=== PATIENT | female | born 1950 | race Two or more races ===

== ENCOUNTER 2018-09-23 12:16 | Emergency (ER) ==
[~2018-09-23] VITALS: Ht 165.1 cm; Wt 84.8 kg
[~2018-09-23 12:16] MED LIST: ATEN25TA PO; METF-440 PO; PANT40TA2 PO
--- NOTE | 2018-09-23 12:38 | NUR ---
PT BBSELF FOR CP X 3DAYS NOW; PT AAOX4, PT AMBULATORY, PT TO BED 7, NAD NOTED, VSS, PENDING MD BERNAL
[2018-09-23 12:43] LABS: BASOPHILS # (AUTO) 0.1 /CMM (0.0-0.2); BASOPHILS % (AUTO) 0.7 % (0.0-2.0); EOSINOPHILS % (AUTO) 1.9 % (0.0-6.0); HEMATOCRIT 40 % (33-45); HEMOGLOBIN 13.3 g/dL (11.5-14.8); LYMPHOCYTES # (AUTO) 2.8 /CMM (0.8-4.8); LYMPHOCYTES % (AUTO) 38.3 % (20.0-44.0); MEAN CORPUSCULAR HGB CONC 34 g/dl (31.0-36.0); MEAN CORPUSCULAR VOLUME 89 fL (82-100); MONOCYTES # (AUTO) 0.4 /CMM (0.1-1.30); NEUTROPHILS # (AUTO) 3.9 /CMM (1.8-8.9); NEUTROPHILS % (AUTO) 53.1 % (43.0-81.0); PLATELET COUNT (AUTO) 341 /CMM (150-450); RED BLOOD CELL COUNT(AUTO) 4.45 MIL/uL (4.0-5.2); WHITE BLOOD COUNT (AUTO) 7.4 K/uL (4.3-11.0)
[2018-09-23 12:51] LABS: CARBON DIOXIDE 30 mmol/L (21-32); CHLORIDE 103 mmol/L (98-107); CREATININE 0.8 mg/dL (0.6-1.3); GLUCOSE 175 mg/dL (74-106); POTASSIUM 4.6 mmol/L (3.5-5.1); SODIUM SERUM 141 mmol/L (136-145); UREA NITROGEN, BLOOD 15 mg/dL (7-18)
[2018-09-23 12:57] LABS: ALANINE AMINOTRANSFERASE 23 U/L (12-78); ALBUMIN 3.8 g/dL (3.4-5.0); ALKALINE PHOSPHATASE 91 U/L (46-116); ASPARTATE AMINOTRANSFERASE 14 U/L (15-37); BILIRUBIN,DIRECT 0.1 mg/dL (0.0-0.2); BILIRUBIN,TOTAL 0.4 mg/dL (0.2-1.0); TOTAL PROTEIN, SERUM 8.2 g/dL (6.4-8.2)
--- NOTE | 2018-09-23 14:38 | NUR ---
Patient discharged to home in stable condition. Written and verbal after care instructions given. Patient verbalizes understanding of instruction.
[2018-09-23 14:39] VITALS: BP 139/80
== END 2018-09-23 14:39 | disposition home or self-care (01) ==
LOC: ER 12:20
DX: R07.89 Other chest pain (principal); I10 Essential (primary) hypertension; E11.9 Type 2 diabetes mellitus without complications; K21.9 Gastro-esophageal reflux disease without esophagitis
CPT/HCPCS: 36415; 71045-TC; 80048-TC; 80076-TC; 84484-TC; 85025-TC

== ENCOUNTER 2021-06-28 11:36 | Emergency (ER) | payer OTHER ==
[~2021-06-28] VITALS: Ht 157.5 cm; Wt 63.5 kg
--- NOTE | 2021-06-28 11:50 | NUR ---
FAMILY: ART: [phone] KAYLEN: [phone]
--- NOTE | 2021-06-28 11:55 | NUR ---
pt bibra c/o shoulder pain s/p fall, c/o pain 10/. pt is a/o x4,pt placed on monitor.
[2021-06-28] MEDS ORDERED: HYDROCODONE/APAP 5/325MG TABLET ONE (12:13)
[2021-06-28] MEDS ORDERED: HYDROCODONE/APAP 5/325MG TABLET PO ONE (12:30)
--- NOTE | 2021-06-28 12:46 | NUR ---
MOLINA GRANDSON, [facility] [phone]
[2021-06-28] MEDS ORDERED: PROPOFOL 100 ML ONE (12:54)
[2021-06-28] MEDS ORDERED: MORPHINE SULFATE INJ 2 MG/ML DISP.SYRIN ONE (12:54)
[2021-06-28] MEDS ORDERED: MORPHINE SULFATE INJ 2 MG/ML DISP.SYRIN IV ONE (13:00)
[2021-06-28] MEDS ORDERED: PROPOFOL 1,000 MG/100 ML BOTTLE IV ONE ×2 (13:00→14:30)
--- NOTE | 2021-06-28 14:23 | NUR ---
reduction of right shoulder done by dr rocha. time out at 1354. at 1355 40 mg propofol given pt still awake. at 1400 20 mg propofol given at 1400 pt is awake. at 1401 20 mg propofol given at 1401 pt is sedated. at 1403 procedure ended. called for x ray.
[2021-06-28] MEDS ORDERED: ACET-2605 PO (15:12)
[2021-06-28 15:53] VITALS: BP 136/89
--- NOTE | 2021-06-28 15:53 | NUR ---
Patient discharged to home in stable condition. Rx,Written and verbal after care instructions given. Patient verbalizes understanding of instruction.IV removed. Catheter intact and site benign. Pressure and 4x4 applied to site. No bleeding noted.
== END 2021-06-28 15:54 | disposition home or self-care (01) ==
LOC: ER 11:37
DX: S43.084A Other dislocation of right shoulder joint, initial encounter (principal); I10 Essential (primary) hypertension; E11.9 Type 2 diabetes mellitus without complications; Z79.899 Other long term (current) drug therapy; Z79.84 Long term (current) use of oral hypoglycemic drugs; W19.XXXA Unspecified fall, initial encounter; Y93.01 Activity, walking, marching and hiking; Y92.89 Other specified places as the place of occurrence of the external cause; Y99.8 Other external cause status
CPT/HCPCS: 23650; 73020; 73030; 73060; 96374; 99152; 99285; J2270; J3490; G0500